=== PATIENT | male | born 1975 | race Caucasian/White ===

== ENCOUNTER 2016-08-12 08:37 | Emergency (ER) | payer BC ==
[2016-08-12 09:14] VITALS: BP 144/73
--- NOTE | 2016-08-12 09:51 | UC ---
Respiratory Complaint HPI - HPI Summary HPI Summary: cough, ST, malaise, body aches, sinus congestion for 2-3 days. ill with same. "I get pneumonia 3 times a year." When asked if this is documented by CXR , he says yes. No asthma. Nonsmoker. No fever, though has felt achey and chilled. Poor appetite. Going on vcation in a week - History of Current Complaint Chief Complaint: UCRespiratory Stated Complaint: THROAT,COUGH,ACHY Time Seen by Provider: 08/12/16 09:44 Hx Obtained From: Patient, Family/Seam Presser Onset/Duration: Gradual Onset, Lasting Days - 3 Timing: Constant Severity Initially: Mild Severity Currently: Mild Character: Sputum Description: - yellow, scant Aggravating Factors: Exertion, Recumbent Position Alleviating Factors: Nothing Associated Signs And Symptoms: Positive: Chills, Pleuritic Chest Pain, Wheezing , URI, Nasal Congestion, Hoarseness, Sinus Discomfort Related History: Similar Episode/Dx as: - "pneumonia" - Risk Factors Pulmonary Embolism Risk Factors: Negative Cardiac Risk Factors: Negative Pseudomonas Risk Factors: Negative Tuberculosis Risk Factors: Negative - Allergies/Home Medications Allergies/Adverse Reactions: Allergies Allergy/AdvReac Type Severity Reaction Status Date / Time No Known Allergies Allergy Verified 08/12/16 09:09 Home Medications: Home Medications Allergy Medication 1 tab PO Q4H PRN 08/12/16 [History] guaiFENesin ER TAB [Mucinex*] 600 mg PO BID PRN 08/12/16 [History Confirmed 02/18] PMH/Surg Hx/FS Hx/Imm Hx Previously Healthy: Yes - Surgical History Surgical History: None - Family History Known Family History: Negative: Respiratory Disease - no asthma - Social History Occupation: Employed Full-time Lives: With Family Alcohol Use: None Substance Use Type: None Smoking Status (MU): Never Smoked Tobacco - Immunization History Most Recent Influenza Vaccination: not this season Review of Systems Constitutional: Negative Skin: Negative Eyes: Negative ENT: Sore Throat, Nasal Discharge Respiratory: Shortness Of Breath, Cough Cardiovascular: Negative Gastrointestinal: Negative Genitourinary: Negative Motor: Negative Neurovascular: Negative Musculoskeletal: Negative Neurological: Headache, Weakness Psychological: Negative All Other Systems Reviewed And Are Negative: Yes Physical Exam Triage Information Reviewed: Yes Appearance: Well-Appearing, No Pain Distress, Well-Nourished Vital Signs: Initial Vital Signs Temp 99.1 F 08/12/16 09:10 Pulse 87 08/12/16 09:10 Resp 20 08/12/16 09:10 BP 144/73 08/12/16 09:10 Pulse Ox 98 08/12/16 09:10 Vital Signs Reviewed: Yes Eye Exam: Normal Eyes: Positive: Conjunctiva Clear ENT: Positive: Hearing grossly normal, Pharynx normal, TMs normal, Muffled/ hoarse voice - hoarse Neck exam: Normal Neck: Positive: Supple Respiratory: Positive: Lungs clear, Normal breath sounds, No respiratory distress, No accessory muscle use - frequent harsh, dry cough Cardiovascular Exam: Normal Musculoskeletal Exam: Normal Neurological Exam: Normal Psychological Exam: Normal Skin Exam: Normal UC Diagnostic Evaluation - Laboratory O2 Sat by Pulse Oximetry: 98 Respiratory Course/Dx - Differential Dx/Diagnosis Differential Diagnosis/HQI/PQRI: Bronchitis, Influenza, Sinusitis Provider Diagnoses: URI Discharge - Discharge Plan Condition: Stable Disposition: HOME Prescriptions: Albuterol HFA INHALER* [Ventolin HFA Inhaler*] 1 - 2 puff INH Q4H PRN #1 mdi PRN Reason: cough, wheeze Azithromycin TAB* [Zithromax TAB (Z-YONY) 250 mg #6 tabs] 2 tab PO .TODAY, THEN 1 DAILY #1 yony Benzonatate CAP* [Tessalon CAP*] 100 mg PO TID PRN #30 cap PRN Reason: Cough Patient Education Materials: Upper Respiratory Infection (ED)
== END 2016-08-12 09:56 | disposition home or self-care (01) ==
LOC: UCCORT 08:37
DX: J06.9 Acute upper respiratory infection, unspecified (principal)
CPT/HCPCS: 99202; G0463

== ENCOUNTER 2016-08-29 18:47 | Emergency (ER) | payer BC ==
[2016-08-29] MEDS ORDERED: Amoxicillin PO (*) 500 MG CAP PO ONE (19:48)
--- NOTE | 2016-08-29 19:48 | UC ---
Respiratory Complaint HPI - HPI Summary HPI Summary: LEFT EAR PAIN FOR ONE WEEK, EAR IS VERY PAINFUL IF TOUCHED BEGAN AFTER GOING SWIMMING. LAST FEW DAYS SINUS PRESSURE, PRESSURE BEHIND EYES. SINUS CONGESTION. COUGHING OCCASIONALLY. NO BODY ACHES OR CHILLS. JUST DROVE HOME FROM [place]. He has a lot of pain and pressure over his cheeks and behind his eyes. minimal sporadic cough w/o wheezing. here with his who is not ill. - History of Current Complaint Chief Complaint: UC Stated Complaint: LEFT EAR PAIN,SINUS Time Seen by Provider: 08/29/16 19:36 - Allergies/Home Medications Allergies/Adverse Reactions: Allergies Allergy/AdvReac Type Severity Reaction Status Date / Time No Known Allergies Allergy Verified 08/29/16 19:26 Home Medications: Home Medications Phenylephrine-Diphenhydramine- [Multi-Symptom Cold Daytim] 1 mis PO PRN [History] PMH/Surg Hx/FS Hx/Imm Hx Previously Healthy: Yes - Surgical History Surgical History: None - Family History Known Family History: Positive: Cardiac Disease, Hypertension, Diabetes Negative: Respiratory Disease - no asthma - Social History Alcohol Use: None Substance Use Type: None Smoking Status (MU): Never Smoked Tobacco - Immunization History Most Recent Influenza Vaccination: not this season Review of Systems Constitutional: Negative, Fatigue Skin: Negative Eyes: Negative ENT: Sore Throat, Ear Ache, Nasal Discharge Respiratory: Cough Cardiovascular: Negative Gastrointestinal: Negative Genitourinary: Negative Motor: Negative Neurovascular: Negative Musculoskeletal: Negative Neurological: Negative Psychological: Negative All Other Systems Reviewed And Are Negative: Yes Physical Exam Triage Information Reviewed: Yes Appearance: Well-Appearing, Well-Nourished, Ill-Appearing - mildly Vital Signs: Initial Vital Signs Temp 98.9 F 08/29/16 19:28 Pulse 81 08/29/16 19:28 Resp 18 08/29/16 19:28 BP 147/96 08/29/16 19:28 Pulse Ox 98 08/29/16 19:28 Vital Signs Reviewed: Yes Eye Exam: Normal ENT: Positive: Hearing grossly normal, Pharyngeal erythema - +PND, + b/l maxillary and frontal tenderness, Nasal drainage, TMs normal - Left auditory canal with slight swelling and exudate. tender tragus and manipulation. no erythema. Negative: TM bulging, TM dull, TM red Dental Exam: Normal Neck exam: Normal Neck: Positive: Supple, Nontender, No Lymphadenopathy Respiratory Exam: Normal Respiratory: Positive: Lungs clear, Normal breath sounds, No respiratory distress, No accessory muscle use. Negative: Crackles, Rhonchi, Stridor, Wheezing Cardiovascular Exam: Normal Cardiovascular: Positive: RRR, No Murmur, Pulses Normal, Brisk Capillary Refill Abdomen Description: Positive: Nontender, Soft Musculoskeletal Exam: Normal Neurological Exam: Normal Psychological Exam: Normal Skin Exam: Normal UC Diagnostic Evaluation - Laboratory O2 Sat by Pulse Oximetry: 98 Respiratory Course/Dx - Differential Dx/Diagnosis Differential Diagnosis/HQI/PQRI: Bronchitis, Laryngitis, Lower Resp Infection, Sinusitis, Other - otitis externa Provider Diagnoses: sinusitis, left external otitis Discharge - Discharge Plan Condition: Stable Disposition: HOME Prescriptions: Amoxicillin (*) 875 mg PO BID #20 tab Neomyc/Polym/HC 1% OTIC SUSP* [Cortisporin Otic Susp 1%*] 4 drop LEFT EAR QID # 1 btl Patient Education Materials: Sinusitis (ED), Otitis Externa (ED) Referrals: Derrick Ayala [Primary Care Provider] - 3 Days Additional Instructions: Use OTC flonase or nasonex. Take a probiotic while you are on the antibiotic. fluids and rest.
[2016-08-29 20:18] VITALS: BP 151/64
== END 2016-08-29 20:18 | disposition home or self-care (01) ==
LOC: UCCORT 18:47
DX: J32.9 Chronic sinusitis, unspecified (principal); H60.92 Unspecified otitis externa, left ear
CPT/HCPCS: 99212; A9270-GY; G0463

== ENCOUNTER 2017-12-30 16:23 | Emergency (ER) | payer BC ==
--- NOTE | 2017-12-30 17:10 | UC ---
Skin Complaint HPI - HPI Summary HPI Summary: 42 yo male presents with rash to right side of head that began 2 days ago. He tells me that about 3-4 days ago he thought he got bit by a bug because his head behind his ear and occipital region was tender and stung, but he did not see any signs of a bite. 2 days ago he noticed a red spot appear that was itchy and tender and stung. Today noticed surrounding red spots and has some tingling into his right neck. Denies fever, chills, recent illness, headache, dizziness. - History of Current Complaint Time Seen by Provider: 12/30/17 17:10 Stated Complaint: SKIN COMPLAINT Hx Obtained From: Patient Onset/Duration: Gradual Onset Onset Severity: Mild Current Severity: Moderate Pain Intensity: 4 Pain Scale Used: 0-10 Numeric - Allergy/Home Medications Allergies/Adverse Reactions: Allergies Allergy/AdvReac Type Severity Reaction Status Date / Time No Known Allergies Allergy Verified 12/30/17 17:13 Home Medications: Home Medications Omeprazole CAP* [Prilosec CAP* 20 MG] 20 mg PO DAILY 12/30/17 [History Confirmed 12/30/17] Review of Systems Constitutional: Negative Skin: Rash Eyes: Negative ENT: Negative Respiratory: Negative Cardiovascular: Negative Gastrointestinal: Negative Motor: Negative Neurovascular: Negative Musculoskeletal: Negative Neurological: Negative Psychological: Negative All Other Systems Reviewed And Are Negative: Yes PMH/Surg Hx/FS Hx/Imm Hx GI/ History: Gastroesophageal Reflux - Surgical History Surgical History: None - Family History Known Family History: Positive: Cardiac Disease, Hypertension, Diabetes Negative: Respiratory Disease - no asthma - Social History Occupation: Employed Full-time Lives: With Family Alcohol Use: None Substance Use Type: None Smoking Status (MU): Never Smoked Tobacco - Immunization History Most Recent Influenza Vaccination: not this season Physical Exam - Summary Physical Exam Summary: GENERAL: NAD. WDWN. No pain distress. SKIN: Occipital scalp: Right of the midline there is a 1.0cm diameter area of mild erythema, tenderness, and edema. Superior to this lesion there are <5mm clusters of similar lesions. Right neck: mild tenderness - no lesions. No lesions on face or ear. No streaking, bleeding, or drainage. Lesions do not cross midline. NECK: Supple. Nontender. No lymphadenopathy. CHEST: No accessory muscle use. Breathing comfortably and in no distress. CV: RRR. Without m/r/g. NEURO: Alert. CN II-XII grossly intact. PSYCH: Age appropriate behavior. Triage Information Reviewed: Yes Vital Signs: Vital Signs: Temp Pulse Resp BP Pulse Ox 98.9 F 75 15 157/73 98 12/30/17 17:09 12/30/17 17:09 12/30/17 17:09 12/30/17 17:09 12/30/17 17:09 Course/Dx - Course Course Of Treatment: Suspect shingles of C2-C3 right sided. Rx for valacyclovir and neurontin. - Diagnoses Provider Diagnoses: Shingles Discharge - Sign-Out/Discharge Documenting (check all that apply): Discharge/Admit/Transfer - Discharge Plan Condition: Stable Disposition: HOME Prescriptions: Gabapentin CAP(*) [Neurontin 100 mg CAP(*)] 100 mg PO TID PRN #21 cap PRN Reason: Pain ValACYclovir (*) [Valtrex 1 GM(*)] 1 gm PO TID #21 tab Patient Education Materials: Bhavya (ED) Referrals: Derrick Ayala [Primary Care Provider] - Additional Instructions: If you develop a fever, shortness of breath, chest pain, new or worsening symptoms - please call your PCP or go to the ED. Your blood pressure was high at todays visit. Please see your primary provider within 4 weeks for recheck and re-evaluation. - Billing Disposition and Condition Condition: STABLE Disposition: Home
[2017-12-30 17:14] VITALS: BP 157/73
== END 2017-12-30 17:40 | disposition home or self-care (01) ==
LOC: UCCORT 16:23
DX: B02.9 Zoster without complications (principal)
CPT/HCPCS: 99212; G0463

== ENCOUNTER 2019-07-10 09:56 | Emergency (ER) | payer BC ==
[2019-07-10 10:31] VITALS: BP 165/100
--- NOTE | 2019-07-10 10:57 | UC ---
Skin Complaint HPI - HPI Summary HPI Summary: 44 yo with about 4 weeks of rash at the corners of the mouth with recurrent fissuring and pain, coupled with mouth soreness. He followed a vegan diet for 8 or 9 months due to his 's medical problems, and he did occasionally eat meat and supplemented vitamins during that time. He has no increase in fatigue, no heart palpitations, changes in activity tolerance, or symptoms of iron deficiency. Curiously his mom was recently treated for thrush (but she also has Lyme disease treatment ongoing.). - History of Current Complaint Chief Complaint: UCSkin Time Seen by Provider: 07/10/19 10:55 Stated Complaint: MOUTH/LIP ISSUE Hx Obtained From: Patient Onset/Duration: Gradual Onset, Lasting Weeks, Still Present Timing: Constant Onset Severity: Mild Current Severity: Mild Pain Intensity: 3 Location: Discrete Aggravating Factor(s): Touch, Other - chewing hurts Alleviating Factor(s): Nothing Associated Signs & Symptoms: Positive: Negative - Allergy/Home Medications Allergies/Adverse Reactions: Allergies Allergy/AdvReac Type Severity Reaction Status Date / Time No Known Allergies Allergy Verified 07/10/19 10:26 PMH/Surg Hx/FS Hx/Imm Hx Previously Healthy: Yes - Surgical History Surgical History: None - Family History Known Family History: Positive: Cardiac Disease, Hypertension, Diabetes Negative: Respiratory Disease - no asthma - Social History Alcohol Use: None Substance Use Type: None Smoking Status (MU): Former Smoker Length of Time of Smoking/Using Tobacco: 2 PPD x 18 Years When Did the Patient Quit Smoking/Using Tobacco: ~2014 - Immunization History Most Recent Influenza Vaccination: not this season Review of Systems All Other Systems Reviewed And Are Negative: Yes Constitutional: Positive: Fatigue - chronic in nature for him. Skin: Positive: Rash Eyes: Positive: Negative ENT: Positive: Other - sore tongue. Negative: Sore Throat Respiratory: Positive: Negative Cardiovascular: Positive: Negative Gastrointestinal: Positive: Negative Genitourinary: Positive: Negative Motor: Positive: Negative Neurovascular: Positive: Negative Musculoskeletal: Positive: Negative Neurological: Positive: Negative Psychological: Positive: Negative Is Patient Immunocompromised?: No Physical Exam Triage Information Reviewed: Yes Appearance: Well-Appearing, No Pain Distress Vital Signs: Initial Vital Signs Temp 97.8 F 07/10/19 10:23 Pulse 64 07/10/19 10:23 Resp 16 07/10/19 10:23 BP 165/100 07/10/19 10:23 Pulse Ox 100 07/10/19 10:23 Eyes: Positive: Conjunctiva Clear ENT Exam: Other - fissuring at left corner of mouth, with erythema and mild scale. ENT: Positive: Pharyngeal erythema, Other - hard palate with patchy erythema. Dental Exam: Normal Neck: Positive: Supple, Nontender, No Lymphadenopathy Respiratory: Positive: Lungs clear, Normal breath sounds Cardiovascular: Positive: RRR, No Murmur Musculoskeletal Exam: Normal Neurological Exam: Normal Psychological Exam: Normal Skin Exam: Other - erythema over 1.5 cm area bilateral corners of mouth Course/Dx - Course Course Of Treatment: use topical antifungal on mouth, 5 days of oral diflucan for possible thrush. - Differential Diagnoses - Skin Complaint Differential Diagnoses: Contact Dermatitis, Other - Irene - Diagnoses Provider Diagnosis: Thrush, oral Discharge ED - Sign-Out/Discharge Documenting (check all that apply): Patient Departure All imaging exams completed and their final reports reviewed: No Studies - Discharge Plan Condition: Stable Disposition: HOME Prescriptions: Fluconazole 100 MG TAB* [Diflucan 100 MG TAB*] 100 mg PO DAILY #5 tab Patient Education Materials: Oral Candidiasis (ED) Referrals: Derrick Ayala [Primary Care Provider] - [facility] [Medical Doctor] - Additional Instructions: Your blood pressure is elevated to 165/100 today. Please have your blood pressure checked again within 4 weeks. Use fluconazole for oral thrush. Swish your mouth with clear water and spit, but at this time, please do NOT use full strength Listerine. Use topical clotrimazole or miconazole externally on the rash at the sides of your mouth. Massage in a small amount well 3 x per day until resolved (should be gone within a week.). If the rash does not respond, further evaluation is needed. A dermatology referral is included. - Billing Disposition and Condition Condition: STABLE Disposition: Home
== END 2019-07-10 11:39 | disposition home or self-care (01) ==
LOC: UCCORT 09:56
DX: B37.0 Candidal stomatitis (principal); R53.83 Other fatigue; Z87.891 Personal history of nicotine dependence
CPT/HCPCS: 99212; G0463

== ENCOUNTER 2019-09-22 14:38 | Emergency (ER) | payer BC ==
[2019-09-22 16:16] VITALS: BP 176/94
--- NOTE | 2019-09-25 09:28 | UC ---
Respiratory Complaint HPI - HPI Summary HPI Summary: Pt presents with c/o cough that began after cleaning out his garage and being exposed to "all the dust". Pt has been home for the last 7 days and "self quarantining" Pt denies fever, chills or SOB. - History of Current Complaint Chief Complaint: UCGeneralIllness Stated Complaint: CHILLS,FEVER,COUGH,FATIGUE Time Seen by Provider: 09/22/19 16:05 Hx Obtained From: Patient Onset/Duration: Gradual Onset, Lasting Days, Still Present Severity Initially: Mild Severity Currently: Mild Pain Intensity: 0 Pain Scale Used: 0-10 Numeric Character: Cough: Nonproductive Aggravating Factors: Allergens Alleviating Factors: Nothing Associated Signs And Symptoms: Positive: Nasal Congestion Related History: Seasonal Allergies - Risk Factors Pulmonary Embolism Risk Factors: Negative Cardiac Risk Factors: Negative Pseudomonas Risk Factors: Negative Tuberculosis Risk Factors: Negative - Allergies/Home Medications Allergies/Adverse Reactions: Allergies Allergy/AdvReac Type Severity Reaction Status Date / Time No Known Allergies Allergy Verified 09/22/19 16:04 Home Medications: Home Medications Albuterol HFA INHALER* [Ventolin HFA Inhaler*] 1 - 2 puff INH Q4H PRN #1 mdi [Rx] DOXYcycline CAP(*) [DOXYcycline 100MG CAP(*)] 100 mg PO Q12H #20 cap 09/22/19 [ Rx] Fexofenadine (NF) [Destiny 180 (NF)] 180 mg PO DAILY #14 tab 09/22/19 [Rx] predniSONE 10 mg TAB [Deltasone 10 MG TAB*] 30 mg PO DAILY #18 tab 09/22/19 [Rx] PMH/Surg Hx/FS Hx/Imm Hx Previously Healthy: Yes - Surgical History Surgical History: None - Family History Known Family History: Positive: Cardiac Disease, Hypertension, Diabetes Negative: Respiratory Disease - no asthma - Social History Occupation: Employed Full-time Lives: With Family Alcohol Use: None Substance Use Type: None Smoking Status (MU): Former Smoker Length of Time of Smoking/Using Tobacco: 2 PPD x 18 Years Have You Smoked in the Last Year: No When Did the Patient Quit Smoking/Using Tobacco: ~2014 - Immunization History Most Recent Influenza Vaccination: not this season Vaccination Up to Date: Yes Review of Systems All Other Systems Reviewed And Are Negative: Yes Constitutional: Positive: Negative Skin: Positive: Negative Eyes: Positive: Negative ENT: Positive: Sinus Congestion Respiratory: Positive: Cough Cardiovascular: Positive: Negative Gastrointestinal: Positive: Negative Genitourinary: Positive: Negative Motor: Positive: Negative Neurovascular: Positive: Negative Musculoskeletal: Positive: Negative Neurological/Mental Status: Positive: Negative Psychological: Positive: Negative Is Patient Immunocompromised?: No Physical Exam Triage Information Reviewed: Yes Appearance: Well-Appearing Vital Signs: Initial Vital Signs Temp 98.8 F 09/22/19 15:59 Pulse 75 09/22/19 15:59 Resp 18 09/22/19 15:59 BP 176/94 09/22/19 15:59 Pulse Ox 97 09/22/19 15:59 Vital Signs Reviewed: Yes Eye Exam: Normal ENT: Positive: Nasal congestion Dental Exam: Normal Neck exam: Normal Respiratory Exam: Normal Respiratory: Positive: No respiratory distress Musculoskeletal Exam: Normal Neurological Exam: Normal Psychological Exam: Normal Skin Exam: Normal Respiratory Course/Dx - Differential Dx/Diagnosis Differential Diagnosis/HQI/PQRI: Bronchitis, Influenza Provider Diagnosis: Bronchitis Discharge ED - Sign-Out/Discharge Documenting (check all that apply): Patient Departure All imaging exams completed and their final reports reviewed: No Studies - Discharge Plan Condition: Stable Disposition: HOME Prescriptions: Albuterol HFA INHALER* [Ventolin HFA Inhaler*] 1 - 2 puff INH Q4H PRN #1 mdi PRN Reason: Sob/Wheezing DOXYcycline CAP(*) [DOXYcycline 100MG CAP(*)] 100 mg PO Q12H #20 cap Fexofenadine (NF) [Destiny 180 (NF)] 180 mg PO DAILY #14 tab predniSONE 10 mg TAB [Deltasone 10 MG TAB*] 30 mg PO DAILY #18 tab Patient Education Materials: Acute Bronchitis (ED) Forms: COVID-19 Eval & Not Tested Referrals: No Primary Care Phys,NOPCP [Primary Care Provider] - Additional Instructions: Please remain quarantined for 14 days. - Billing Disposition and Condition Condition: STABLE Disposition: Home
== END 2019-09-22 16:58 | disposition home or self-care (01) ==
LOC: UCCORT 14:38
DX: J40 Bronchitis, not specified as acute or chronic (principal); Z87.891 Personal history of nicotine dependence
CPT/HCPCS: 99212; G0463